=== PATIENT | female | born 1935 | race Caucasian/White ===

== ENCOUNTER → 2018-04-13 10:41 | Outpatient (CLI) | payer MEDICARE, BC, SELFPAY ==
--- NOTE | 2018-04-13 | DI.RAD.S_ITS ---
PROCEDURE: XR LUMBAR SPINE 2-3V INDICATIONS: SPINAL STENOSIS TECHNIQUE: 3 views of the lumbar spine were acquired. COMPARISON: None. FINDINGS: Bones: 5 ocp-uqp-eyhyylu vertebrae are present with vestigial 12th ribs. There is trace L1-L2 and L2-L3 retrolisthesis. There is trace L3-L4 anterolisthesis. Approximately 15? of convex right lumbar spine scoliosis. Severe L3-L4 degenerative changes. Moderate L1-L2, L2-L3 and L4-L5 degenerative changes. Moderate L2-L3, L3-L4 and L4-L5 facet arthropathy. Severe L5-S1 facet arthropathy. No vertebral body compression fractures. No suspicious bony lesions. Soft tissues: Overlying bowel gas pattern is normal. No suspicious soft tissue calcifications. IMPRESSION: 1. Convex left scoliosis. 2. Multilevel degenerative disc disease. 3. Multilevel facet arthropathy. Dictated by: Valeria Bonilla MD, PhD on 04/13/2018 at 11:08 Approved by: Valeria Bonilla MD, PhD on 04/13/2018 at 11:21
== END ==
PROVIDERS: PCP Internal Medicine; Visit Provider Internal Medicine
DX: M51.16 Intervertebral disc disorders with radiculopathy, lumbar region (principal); M41.9 Scoliosis, unspecified; M47.26 Other spondylosis with radiculopathy, lumbar region; M47.27 Other spondylosis with radiculopathy, lumbosacral region
CPT/HCPCS: 72100

== ENCOUNTER → 2018-04-24 10:55 | Outpatient (CLI) | payer MEDICARE, BC, SELFPAY ==
--- NOTE | 2018-04-24 | DI.MRI.S_ITS ---
PROCEDURE: MR LUMBAR SPINE WO/W CON INDICATIONS: LUMBOSACRAL REGION SPINAL STENOSIS TECHNIQUE: Noncontrast sagittal T1 spin echo and T2 fast spin echo, sagittal STIR, axial T1 and T2 fast spin echo through the lumbar spine. In this patient, coronal T2-weighted images were also performed. After the administration of contrast, sagittal and axial T1 spin echo with fat saturation through the lumbar spine. COMPARISON: [facility], CR, XR LUMBAR SPINE 2-3V, 04/13/2018, 10:32. FINDINGS: Image quality: Diagnostic, with note made of motion artifact. Alignment and curvature: Moderate dextroconvex scoliotic curvature is seen. There is moderate lateral translation of L3 on L4. Minimal retrolisthesis is seen at L2-L3. Minimal anterolisthesis is seen L3-L4. There is minimal retrolisthesis at L4-L5. Grade 1 anterolisthesis is seen at L5-S1. No associated pars defects are detected, however. Marrow: Marrow is of normal overall signal. No acute vertebral body compression fractures. No suspicious marrow enhancement. Spinal cord: Conus medullaris terminates at the T12-L1 level. Visualized spinal cord demonstrates normal signal, without suspicious enhancement. Paraspinous soft tissues: There is a rounded lesion seen along the posterior aspect of the right liver, just superior to the right kidney that measures 3.4 x 3 cm in greatest axial dimension. This lesion is hypointense on precontrast T1-weighted imaging, hyperintense on T2-weighted/STIR imaging and demonstrates moderate internal enhancement on postcontrast imaging. T12-L1: Normal appearance. L1-L2: Mild to moderate loss of disc height is seen. Loss of disc signal is seen. Rxsj-rw-clgygwvb disc bulge is seen, which is eccentric to the right side. Kgjb-zj-ccjqntgj bilateral neural foraminal narrowing is seen. Mild central canal narrowing is seen. L2-L3: Mild loss of disc height is seen. Loss of disc signal is seen. Moderate generalized disc bulge is seen. Qmak-kl-tjorzpal facet hypertrophy is seen. Iwic-td-jxlsnmdc bilateral neural foraminal narrowing is seen, left worse than right. Mild central canal narrowing is seen. L3-L4: Moderate loss of disc height is seen. Loss of disc signal is seen. Moderate disc bulge is seen, which is eccentric to the left side. Moderate to severe bilateral neural foraminal narrowing is seen. There is a minimal amount of associated nerve root impingement. No significant central canal narrowing is seen. There has been removal of portions of the posterior elements. L4-L5: Moderate loss of disc height is seen. Loss of disc signal is seen. Moderate disc bulge is seen, which is eccentric to the right side. Moderate to severe bilateral neural foraminal narrowing is seen. There is a degree of impingement seen upon the exiting nerve roots. Moderate central canal narrowing is seen. L5-S1: The disc height is well-preserved. Loss of disc signal is seen at this level. Moderate to prominent facet hypertrophy is seen. Moderate generalized disc bulge is seen. Moderate to severe bilateral neural foraminal narrowing is seen. There is a degree of impingement seen upon the exiting nerve roots. Moderate to severe central canal narrowing is seen. IMPRESSION: Multiple levels of lumbar spine degenerative change are seen, which are most prominent at the L4-L5 and L5-S1 levels. Moderate dextroconvex scoliotic curvature. Along the posterior aspect of the right liver, there is an enhancing mass measures 3.4 cm. This may be related to benign liver lesion, such as a hemangioma. However, differential diagnosis includes a liver neoplasm. Differential diagnosis also enhancing renal mass, yet this is considered to be less likely. A liver mass protocol MRI or CT would be recommended for further evaluation. Note: Findings and recommendations relayed to Dr. Maldonado via medical sociologist.[facility] at [address] [place] [address] on April 24, 2018. Dr. Maldonado will call back if there are any questions. Dictated by: Ernst Olivo M.D. on 04/24/2018 at 12:05 Approved by: Ernst Olivo M.D. on 04/24/2018 at 13:23
== END ==
PROVIDERS: PCP Internal Medicine; Visit Provider Internal Medicine
DX: M48.07 Spinal stenosis, lumbosacral region (principal); M51.36 Other intervertebral disc degeneration, lumbar region; M51.37 Other intervertebral disc degeneration, lumbosacral region; R16.0 Hepatomegaly, not elsewhere classified
CPT/HCPCS: 72158; A9579

== ENCOUNTER → 2018-04-26 09:44 | Outpatient (CLI) | payer MEDICARE, BC, SELFPAY ==
--- NOTE | 2018-04-26 | DI.CT.S_ITS ---
PROCEDURE: CT ABDOMEN WO/W CON INDICATIONS: LIVER LESION SEEN ON MRI TECHNIQUE: 4 phase scanning was performed. Non-contrast 5 mm axial sections acquired from the diaphragm to the iliac crests. Following the administration of intravenous contrast, 5 mm thick arterial-phase, portal venous-phase, and 5-minute delayed phase images were acquired through the liver. 5 mm thick coronal and sagittal reformats were performed. For radiation dose reduction, the following was used: automated exposure control, adjustment of mA and/or kV according to patient size. COMPARISON: [facility], MR, MR LUMBAR SPINE WO/W CON, 04/24/2018, 11:12. FINDINGS: Image quality: Excellent. Lung bases: Lung bases are clear. Heart size is normal. Liver: The liver contains a 3.4-3.5 cm rounded soft tissue abnormality that shows discontinuous peripheral nodular enhancement and centripetal internal contrast enhancement on delayed imaging. No additional similar lesions are seen elsewhere throughout the hepatic parenchyma. Other solid organs: Gallbladder appears normal. Biliary system is non dilated. Pancreas is normal in morphology. Spleen is normal in size and enhancement. No adrenal nodules. Both kidneys demonstrate normal size and enhancement, without hydronephrosis or nephrolithiasis. Nodes and vessels: No retroperitoneal or mesenteric adenopathy by size criteria. Aorta and inferior vena cava are normal in size. Bowel and peritoneum: Unenhanced bowel loops are normal in caliber. No free fluid or air. Bones: No suspicious bony lesions. No vertebral body compression fractures. Miscellaneous: No ventral hernias. IMPRESSION: Benign hemangioma right posterior hepatic segment measuring up to 3.5 cm in maximal dimension and no additional followup is recommended. Dictated by: Edgar Rivera M.D. on 04/26/2018 at 11:37 Approved by: Edgar Rivera M.D. on 04/26/2018 at 11:42
== END ==
PROVIDERS: PCP Internal Medicine; Visit Provider Internal Medicine
DX: D18.09 Hemangioma of other sites (principal); K76.9 Liver disease, unspecified
CPT/HCPCS: 74170; Q9967

== ENCOUNTER → 2018-06-27 09:51 | Outpatient (CLI) | payer MEDICARE, BC, SELFPAY ==
--- NOTE | 2018-06-27 | DI.RAD.S_ITS ---
PROCEDURE: XR HIP W PEL IF DONE BILAT 2V INDICATIONS: HIP PAIN TECHNIQUE: AP pelvis with lateral view(s) of the right and left hip(s). COMPARISON: None. FINDINGS: Bones: No fractures or dislocations. Discogenic changes and lateral curvature seen of the lower lumbar spine. There is severe right hip degeneration with aqcr-eq-hsas appearance. Exccjvwc-io-msqlrk left hip degeneration. There is also degenerative sclerosis and spurring of the pubic symphysis and sacroiliac joints. Pelvic ring appears intact. No suspicious bony lesions. Soft tissues: The visualized bowel gas pattern is normal. No suspicious soft tissue calcifications. IMPRESSION: Severe right hip degeneration. Moderate to severe left hip degeneration. Lower lumbar degenerative disc disease. Dictated by: Peewee Luna M.D. on 06/27/2018 at 12:01 Approved by: Peewee Luna M.D. on 06/27/2018 at 12:05
== END ==
PROVIDERS: PCP Internal Medicine; Visit Provider Internal Medicine
DX: M25.559 Pain in unspecified hip (principal); M16.0 Bilateral primary osteoarthritis of hip; M51.36 Other intervertebral disc degeneration, lumbar region
CPT/HCPCS: 73521

== ENCOUNTER 2018-10-05 06:07 | Inpatient (IN) | payer MEDICARE, BC, SELFPAY ==
[2018-09-20 08:48] VITALS: BMI 20.2
[2018-10-05] VITALS (17 sets, daily range): BP systolic 86–131; BP diastolic 47–69; PULSE 54–64; RESP 8–18; TEMP 36.2–36.7; O2SAT 95–100; BMI 19.3
--- NOTE | 2018-10-05 | DI.RAD.S_ITS ---
PROCEDURE: XR PELVIS 1-2V INDICATIONS: RIGHT TKA TECHNIQUE: Intra-operative view of the pelvis and hip acquired. COMPARISON: None. FINDINGS: Bones: Intraoperative devices prior to placement of arthroplasty prostheses are in expected positions. No fractures or suspicious bony lesions. Soft tissues: Overlying surgical retractors are present, along with other intraoperative changes. IMPRESSION: Expected postsurgical change for intraoperative right hip arthroplasty. Dictated by: Valeria Bonilla MD, PhD on 10/05/2018 at 10:29 Approved by: Valeria Bonilla MD, PhD on 10/05/2018 at 10:29
--- NOTE | 2018-10-05 06:00 | DI.RAD.S_ITS ---
PROCEDURE: XR HIP W PEL IF DONE RT 2V INDICATIONS: prosthesis placement TECHNIQUE: AP pelvis and lateral view of the right hip acquired. COMPARISON: [facility], CR, XR PELVIS 1-2V, 10/05/2018, 9:08. FINDINGS: Bones: Patient is status post right hip arthroplasty, with hardware components in expected positions. The hip joint appears congruent. The visualized bony structures appear intact. Prominent degenerative changes of the lower lumbar spine, right sacroiliac joint, and pubis symphysis are present. There is moderate degenerative changes of the left hip. Soft tissues: Overlying postoperative changes are noted. No suspicious soft tissue densities. No unexpected radiopaque foreign bodies are identified. Areas of soft tissue air and edema are present. IMPRESSION: Expected postoperative changes related to a right hip arthroplasty. Dictated by: Fco Powell M.D. on 10/05/2018 at 10:21 Approved by: Fco Powell M.D. on 10/05/2018 at 10:22
[2018-10-05] MEDS: LACTATED RINGERS 1,000 ML 42 ML IV ×2 (07:00→10:17)
[2018-10-05] MEDS: VANCOMYCIN 1,000 MG/200 ML FROZ.PIGGY 200 MG IV (07:01)
[2018-10-05] MEDS: ACETAMINOPHEN 325 MG TABLET 975 MG PO ×3 (07:14→20:41)
[2018-10-05] MEDS: CELECOXIB 200 MG CAPSULE PO (07:14)
[2018-10-05] MEDS: PREGABALIN 75 MG CAPSULE PO (07:14)
--- NOTE | 2018-10-05 07:24 | PC.NURSE ---
Day shift: Pt not on this AC unit at this time.
--- NOTE | 2018-10-05 07:47 | PM.PREOP ---
Pre-operative Note Interval Note History & Physical reviewed/Exam performed by Physician: Yes Changes to H&P: Yes
--- NOTE | 2018-10-05 07:49 | P.OP_ITS ---
Operative Date/Time/Diagnoses Date of procedure: 10/05/18 Time of procedure: 07:47 Pre-op diagnosis: right hip OA Post-op diagnosis: same Procedure & Clinicians Procedure: right total hip anterior Same procedure as scheduled: Yes Indications: The patient has had progressively worsening right hip pain with radiographic changes consistent with arthritis. Non-operative management has failed and the patient has requested total hip replacement. The risks, benefits and alternatives to surgery were discussed with the patient prior to proceeding. Risks discussed included, but were not limited to, failure to relieve pain, leg length discrepancy, dislocation, stiffness, infection, nerve damage, deep venous thrombosis, pulmonary embolism, stroke, coma, heart attack, permanent paralysis and , as well as the potential need for eventual revision of the prosthetic. Surgeon: Rekha Berg [employer] Helper: Mian Wei Anesthesia Type: General and Spinal Operative Notes Findings: Severe right hip osteoarthritis, good stability Closure Type: primary Specimen(s): none sent Implants & Drains: [employer] anthology standard offset 7, 48 R3 cup, -3 x 32 Estimated Blood Loss (mL): 250 Blood products transfused: none Procedure in detail: The patient was brought to the operating room. Patient was carefully positioned in the supine position. Time-out was performed and antibiotics were given. Anesthesia was induced. She was positioned in the on the table in order to allow hyperextension of the hip. Bilateral lower extremities were prepped and draped in a standard sterile fashion. An anterior right hip incision was made 1 fingerbreadth lateral to the anterior superior iliac spine and extended distally towards the greater trochanter. Dissection was carried out through skin and subcutaneous tissues. The skin and subcutaneous tissues were carefully injected with Lidocaine with epi. Superficial hemostasis was achieved. The fascia over the tensor fascia mathieu was defined and incised with a knife. Two Allis clamps were used to grasp the fascia. Tensor fascia mathieu was retracted laterally. A gelpi retractor was placed. Dissection was carried out down along the neck. The circumflex vessels were carefully identified and cauterized with the Aqua Mantis. There was good visualization of the femoral neck. A Cobra was placed superior to the neck and the gluteus fibers were carefully stripped from that superior aspect of the capsule. A 2nd retractor was placed along the inferior aspect of the neck. The rectus insertion along the capsule was partially released. A 3rd retractor that was then gently placed over the rim of the acetabulum under the rectus. Capsule was carefully incised and released from the intertrochanteric line circumferentially superior to the mid sagittal line and inferiorly to the mid sagittal line until the lesser trochanter was palpable. A tag stitch was placed both in the superior and inferior limb of the capsular insertion. Along the acetabulum capsule was also released up to the mid sagittal 12:00 position. A portion of the labrum was resected. A saw was used to perform an osteotomy at the level of the intertrochanteric line and the junction of the superior femoral neck leaving approximately 1 finger breath of residual inferior neck above the lesser trochanter. A 2nd cut was made along the femoral neck at the base of the head and a napkin ring of neck was removed. Corkscrew was placed in the femoral head and the head was removed without difficulty. Retractors were then repositioned around the acetabulum. Residual labrum was resected and additional osteophytes were removed. A reamer that was 4 mm below the templated size was placed by hand in the acetabulum and it was reamed to centralize the acetabulum. It was then reamed up to 2 under the templated size and fluoroscopy was brought in to confirm the position of the reaming and depth of reaming. I reamed 1 under the anticipated size. A trial cup was placed and noted that it was appropriately sized and fluoroscopy confirmed position and depth. The component was open and inserted without difficulty fluoroscopic imaging was used to confirm that the cup had been adequately seated and was well positioned. Neutral poly trial liner was placed. The cup was tested and noted to be stable. Attention was then directed to the femur. The femur was gently hyperextended additional capsular release was performed as needed in order to allow adequate visualization of the proximal femur with elevation of the femur. Patient was placed in a hyperextended slightly abducted position with maximum external rotation. Box osteotome was used to check for any residual neck as well as sclerotic bone along the trochanter. [place] pepper was placed in the femur. Additional broaching was performed. Canal finder was used to determine the alignment of the canal and position. Size 1 broach was placed. The canal was then appropriately broached up to the templated size as long as there was adequate stability of the broach and serial advancement of the broach without excessive impingement. Specific attention was directed at avoiding varus attempting to direct the distal aspect of the broach more anteriorly and avoiding excessive anteversion. Trial reduction showed acceptable range of motion, good stability, no posterior impingement, nondenominational of leg length and appropriate lateral shuck. I also hyperflexed the hip and checked that there was no impingement anteriorly and there was good stability with flexion, abduction and internal rotation. Final neutral poly was placed without difficulty. Marcaine and Exparel were injected.. The stem was placed without difficulty. Repeat trial reduction and x-ray showed acceptable overall position, length, and no evidence of the femoral fracture. Final head was placed. Wound was meticulously irrigated with normal saline. The hip was reduced and additional Exparel and Marcaine were injected. The capsule was closed with interrupted nonabsorbable sutures. The fascia of the tensor was closed with interrupted and running Vicryl. No drain was placed. Any tensor fascia mathieu muscle that appeared to be contused or injured which was a minimal amount was carefully resected. Capsule around the tensor was injected with Exparel and Marcaine. The skin was closed with barbed stitches for the subcutaneous tissue and skin. We also used surgical glue. The wound was dressed sterilely. Brief Betadine soak was also used and was meticulously irrigated with normal saline. Patient was transferred to recovery room in satisfactory condition. Complications: none Condition: stable Disposition: Acute Care Plan for aftercare: The patient will be maintained on a standard total hip replacement protocol with weight bearing as tolerated and anterior hip precautions. The patient will receive Aspirin and sequential compression devices for DVT prophylaxis. The patient will be discharged home when safe for the home environment.
[2018-10-05] MEDS: TRANEXAMIC ACID 1,000 MG VIAL 1000 MG INJ ×2 (08:00→09:45)
[2018-10-05] MEDS: CEFAZOLIN 2 GM/100 ML FROZ.PIGGY IV ×3 (08:04→23:51)
[2018-10-05] MEDS: LIDOCAINE 1% W/EPI INJ 20 ML INJ (08:26)
--- NOTE | 2018-10-05 08:50 | SUR.OPER ---
Supine, head on pillow, torso on pink pad positioner. Iliac crest at flex of foot end of table. Gel roll under operative hip. Both arms secured on arm boards <90 degrees abduction.
[2018-10-05] MEDS: BUPIVACAINE LIPOSOME 266 MG/20 ML VIAL INJ (09:16)
[2018-10-05] MEDS: BUPIVACAINE 0.25% W/ EPI VIAL 50 ML INJ (09:25)
[2018-10-05] MEDS: POVIDONE-IODINE 15 ML, SODIUM CHLORIDE 0.9% 250 ML TOP (09:26)
--- NOTE | 2018-10-05 11:40 | PC.NURSE ---
Day shift: Arrived on unit from PACU at approx 1130. Oriented to room and call light. RA 99%. Denies any pain. CMS ok. PPP. Denies nausea. Call light in reach. Aquacel dressing is CDI. Call light in reach. Bed alrm is on. HFR for now.
[2018-10-05] MEDS: LACTATED RINGERS 1,000 ML 125 ML IV ×2 (11:48→20:49)
--- NOTE | 2018-10-05 14:47 | CM.IDA ---
Discharge Planning/Care Management CM Discharge Assessment Start: 10/05/18 14:37 Freq: Status: Active Protocol: Document 10/05/18 14:37 ANNEMARIE (Rec: 10/05/18 14:47 ANNEMARIE [id number]) Discharge Planning Assessment Assigned [facility] MINDI Alarcon DPOA/Assigned Designee Name Eugene Cummings, son and DPOA Contact Information [phone] Advance Directives? Yes Advance Directives on File Yes History Provided By Patient Family Member Prior Living Arrangements House Household Members none Type of transporation used prior to Drives own vehicle admit Independent with ADL's Yes Is patient alert and oriented? Yes Barriers to Discharge No Comment Met w/pt and family: son and DIL, friend and sister at bedside. Pt has just reached the floor from OR the after hip surgery and states I'm still numb. Pt is active and indp. at baseline and is confident about her return home when medically stable. She says she has gone through the mary path and feels prepared to return home. Family agrees and states pt is healthy, active and they collectively will be w/pt 11/04 for at least a week. Outpt PT is expected. Pt just got to the floor from surgery. will follow closely, PT pending. Discharge Plan Home Transportation Arrangement Family Additional Comment DC likely home, [employer] team following closely. Whiteboard Updated in Patient Room with Yes name and ext. # of [facility] Review Status In Process
--- NOTE | 2018-10-05 14:56 | PT.IIE ---
Current Diagnoses Unilateral primary osteoarthritis, right hip (10/05/18) Surgery Performed Operation Date: 10/05/18 07:45 Actual Procedures p Total Hip Arthroplasty/Anterior Approach(Right) - Rekha Berg MD Surgical History (Last Updated 09/20/18 @ 09:18 by Iris Waggoner RN) History of bunionectomy of left great toe (Acute) History of root canal procedure (Acute ~06/2018) History of total hysterectomy with bilateral salpingo-oophorectomy (BSO) (Acute) Hx of foot surgery (Acute) Hx of laminectomy (Acute ~2012) Hx of repair of right rotator cuff (Acute) Hx of tonsillectomy (Acute) Status post cataract extraction of both eyes with insertion of intraocular lens (Acute) Status post glaucoma surgery (Acute) Medical History (Last Updated 09/20/18 @ 09:43 by Iris Waggoner RN) Arthritis (Acute) Easy bruisability (Acute) Fragile skin (Acute) Glaucoma (Acute) Herpes labialis (Acute) Hyperlipidemia (Acute) Normal colonoscopy (Acute ~2011) Numbness and tingling (Acute) Osteoarthritis (Acute) Physical Therapy Inpatient Evaluation/Re-Eval M1 PT/OT-IP Prior Functional Status Start: 10/05/18 16:33 Freq: NEEDED Status: Active Protocol: Document 10/05/18 14:56 AB (Rec: 10/05/18 16:47 AB [email or web address]) Medical Review Prior Functional Status Medical History Reviewed Yes Communication able to make needs known Mobility and Gait staed that she is modified independent with all mobilities and ambulation without AD Activities of Daily Living and IADL's able to do all ADLs independently Social History Household Members none Living Arrangements House Number of Floors (Floors) One Floor Number of Stairs To Enter/Railing? 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 stated that she has a PT friend that will check on her as well pt has a high bed and stated that her PT friend will bring a step stool for her to use. has tub next to the toilet that she uses to get up . M2 PT-IP Current Condition Start: 10/05/18 16:33 Freq: NEEDED Status: Active Protocol: Document 10/05/18 14:56 AB (Rec: 10/05/18 16:47 AB [email or web address]) Physical Therapy Current Condition Current Condition Evaluation Date 10/05/18 Treatment Diagnosis s/p R MEGAN anterior approach; difficulties in walking Onset Date 10/05/18 Precautions Anterior Hip Precautions No Hip Extension No Hip External Rotation Weight Bearing Status Weight Bearing Status Weight Bear as Tolerated M3 PT-IP Subjective Start: 10/05/18 16:33 Freq: NEEDED Status: Active Protocol: Document 10/05/18 14:56 AB (Rec: 10/05/18 16:47 AB [email or web address]) Subjective Physical Therapy Visit Type Type Initial Evaluation Visit Start Time 14:56 Visit Stop Time 15:48 Total Visit Minutes 54 Number of CATCH BASIN CLEANER Visits 0 Physical Therapy Visit Comments Patient Comments pt agreeable to do PT Therapy Pain Assessment Pain When Pain Assessed At Rest Pain Present Pain Present Pain Reported Location Right Hip Intensity 2 Scale Used Numeric (1 - 10) Pain Management Techniques Apply Cold Timing of Activity with Medications M4 PT-IP Mobility and Gait Start: 10/05/18 16:33 Freq: NEEDED Status: Active Protocol: Document 10/05/18 14:56 AB (Rec: 10/05/18 16:47 AB [email or web address]) PT-Bed Mobility Assessment Supine to Sit Supine to Sit Minimal Assistance Sit to Supine Sit to Supine Minimal Assistance Scooting Scooting to Edge of Bed Minimal Assistance PT-Transfer Assessment Sit to and From Stand Sit to and from Stand Moderate Assistance 1 Person Assistance Equipment Transfer Assistive Device Gait Belt Front Wheeled Walker Orthotic/Prosthetic Devices or Brace: No Transfers Transfer Destination Toilet Transfer Technique pt ambulated to the toilet using FWW Transfer Ability Level of Assist Moderate Assistance 1 Person Assistance Use of Upper Extremities Comments Mobility Comments pt ambulated to the toilet using FWW mod A and cues. was able to maintain standing min A while assisted with managing her gown. pt required min A for controlled descent to the toilet. pt requested to go back to bed after using the toilet. Gait Assessment Gait Gait Assistance Required: Moderate Assistance 1 Person Assist Distance (Feet) 12 Able to Maintain Weight Bearing Status Yes During Gait Assistive Devices Assistive Device Gait Belt Front Wheeled Walker Orthotic/Prosthetic Devices or Brace: No Gait Deviations General Gait Pattern Antalgic Decreased Stride Length Decreased Feet Clearance Factors Limiting Gait Function Factors Limiting Gait Function Decreased Activity Tolerance Decreased Strength Difficulty Following Directions Limited Range of Motion Pain Poor Balance Poor Safety Awareness Comments Gait Comments pt requires cues to maintain hip precautions. PT-Balance Assessment Sitting Balance and Reactions Static Sitting Balance Ability Good Dynamic Sitting Balance Ability Fair Standing Balance and Reactions Static Standing Balance Ability Fair Dynamic Standing Balance Ability Poor Device Used FWW M5 PT-IP Objective Assessments Start: 10/05/18 16:33 Freq: NEEDED Status: Active Protocol: Document 10/05/18 14:56 AB (Rec: 10/05/18 16:47 AB [email or web address]) Orientation Orientation/Cognition Level of Alertness Alert Orientation Name Place Situation Safety Awareness Decreased Safety Awareness Memory Description Short Term Impaired Form Designer Impaired Comments pt seems sleepy Gross Range of Motion Lower Extremity ROM Assessment Within Functional Limits Strength Lower Extremity Strength Assessment Right Impaired Hip 3-/5 Knee 3+/5 Sensation Assessment Sensation Gross Sensation WNL Muscle Tone Muscle Tone WNL Yes M6 PT-IP Treatment Start: 10/05/18 16:33 Freq: NEEDED Status: Active Protocol: Document 10/05/18 14:56 AB (Rec: 10/05/18 16:47 AB [email or web address]) Physical Therapy Treatment Exercises Exercises Heel Slides Education Education Provided Precautions Weight Bearing Status Post-Op Packet Safety Other Treatments Other Treatment Performed pt required repeated cues and education regarding R hip anterior precautions M7 PT-IP Assessment and Plan Start: 10/05/18 16:33 Freq: NEEDED Status: Active Protocol: Document 10/05/18 14:56 AB (Rec: 10/05/18 16:47 AB [email or web address]) PT Summary Assessment and Plan Potential Rehabilitation Potential Good Status of Condition at Evaluation Stable Summary Impairments Pain ROM Strength Balance Coordination Sensation Tone Cognition Bed Mobility Transfers Gait Activity Tolerance Assessment Summary pt requiring one person assist with mobility and will likely improve with function during hospital stay. pt plans to go home with family to assist her. caregiver training will be conducted when appropriate as well as stair climbing training and if able to safely perform, will be able to go home when medically stable. pt stated that she is already set up at [facility] for her outpt PT. Goals Bed Mobility Goal Standby Assistance Transfer Goal Standby Assistance Front Wheeled Walker Gait Goal Standby Assistance Front Wheel Walker Gait Distance 150 Days to Meet Goals 3 Frequency of Treatment Frequency Of Treatment Twice a Day Treatment Plan Physical Therapy Treatment Plan Bed Mobility Training Transfer Training Gait Training Therapeutic Exercise Balance Retraining Post Op Education Discharge Planning Hot or Cold Pack Neuromuscular Re-ed Coordination Retraining Manual Therapy Recommendations To Nursing Amount of Assist Needed 1 Person Assist Discharge Recommendations PT Discharge Recommendations Home with 11/04 Assist Outpatient PT
[2018-10-05] MEDS: ASPIRIN EC 81 MG TABLET PO (20:41)
[2018-10-06] VITALS: BP 109/59; PULSE 59; RESP 18; TEMP 36.6; O2SAT 97
[2018-10-06 03:50] VITALS: BP 127/60; PULSE 58; RESP 17; TEMP 36.2; O2SAT 99
[2018-10-06 06:22] LABS: Hematocrit 34.4 % (36-46); Hemoglobin 11.4 g/dL (12.0-16.0)
--- NOTE | 2018-10-06 06:39 | PC.NURSE ---
Pt. declined Ibuprofen this morning. States I'll wait until my Tylenol is due, I'm okay right now. Requested & provided decaf coffee & glenn crackers. Denies nausea, drinking fluids. IVF DC'd & saline locked. Will cont. POC & monitor.
--- NOTE | 2018-10-06 07:57 | PM.DS.1 ---
History of Present Illness Date Patient Seen: 10/06/18 Time Patient Seen: 07:58 Chief complaint: right hip [id number] Narrative: The patient has had progressively worsening right hip pain with radiographic changes consistent with arthritis. Non-operative management has failed and the patient has requested total hip replacement. The risks, benefits and alternatives to surgery were discussed with the patient prior to proceeding. Risks discussed included, but were not limited to, failure to relieve pain, leg length discrepancy, dislocation, stiffness, infection, nerve damage, deep venous thrombosis, pulmonary embolism, stroke, coma, heart attack, permanent paralysis and , as well as the potential need for eventual revision of the prosthetic. Discharge Providers Date of admission: 10/05/18 06:07 Primary care physician: Elias Maldonado MD Consults: 10/05/18 06:00 Consult to Anesthesiology Routine Comment: Consulting Provider: Anesthesiologist Reason for consultation: Regional block for post operative pain control Has provider been notified: Yes 10/05/18 11:40 Consult to Discharge Planning Routine Comment: Consult to Physical Therapy Evaluate & Treat Comment: marilyn simeon Physician Instructions: post op MEGAN protocol Consult to Respiratory Therapy Evaluate & Treat Comment: Physician Instructions: Evaluate and treat Discharge provider: Nicol Bertrand PA-C Discharge Date: 10/06/18 Summary Discharge Diagnosis: s/p total hip arthroplasty Hospital Course: Whit was admitted for a right total hip arthroplasty with Dr. Berg, and she consented to procedure. Hospital course was unremarkable. On postop day 1. Patient was ready to discharge home. She is eating and voiding without difficulty or assistance. She mobilized with physical therapy throughout her stay. She has medications at home. She has outpatient physical therapy set up. She has ASA for DVT prophylaxis. Status at Discharge Functional status at discharge: uses cane/walker Exam Vital Signs (past 8 hours): - 10/06/18 00:00 10/06/18 03:50 Temperature 97.9 F 97.2 F L Pulse Rate 59 L 58 L Respiratory Rate 18 17 Blood Pressure 109/59 L 127/60 Pulse Oximetry 97 99 Oxygen Delivery Method Room Air Oxygen Flow Rate 0 Narrative Exam Narrative: Patient is sitting at bedside chair no acute distress. She is alert and oriented x3. Dressing on right hip is CDI. Calves are soft, compressible, nontender bilaterally. She is able to actively dorsiflex and plantar flex. Sensation intact light touch throughout bilateral lower extremities. Pulses are symmetrical. Her pain was well-controlled last night with Tylenol. Denies chest pain or shortness of breath. Objective Labs Result Diagrams: 10/06/18 05:40 Labs: Laboratory Results - last 24 hr 10/06/18 05:40 Hgb 11.4 L Hct 34.4 L Discharge Plan Discharge Plan Patient Disposition: Home Discharge comment: DC home this afternoon Discharge Med Rec/Prescriptions Prescriptions: New acetaminophen 325 mg Tablet 975 mg PO TID Qty: 60 RF: 0 aspirin 81 mg Tablet,Delayed Release (Dr/Ec) 81 mg PO BID Qty: 60 RF: 0 No Action No Known Home Medications RF: 0 Follow up/Referrals: Rekha Berg MD [Physician] - Provider Discharge Instructions Diet: Diet as Tolerated Cold/Heat Therapy: as needed Skin/Wound/Dressing Care Report to your healthcare provider any signs of infection, such as:: chills, fever and increased pain Visit Report/Discharge Packet Instructions: DI for Hip Replacement Discharge Data Primary Care Provider: Elias Maldonado V Attending Provider: Rekha Berg Admit Date/Time: 10/05/18 06:07
[2018-10-06 08:00] VITALS: BP 102/56; PULSE 63; RESP 16; TEMP 36.3; O2SAT 95
[2018-10-06] MEDS: ACETAMINOPHEN 325 MG TABLET 975 MG PO (08:41)
[2018-10-06] MEDS: ASPIRIN EC 81 MG TABLET PO (08:41)
--- NOTE | 2018-10-06 09:47 | PT.IPTN ---
Current Diagnoses Unilateral primary osteoarthritis, right hip (10/05/18) Surgery Performed Operation Date: 10/05/18 07:45 Actual Procedures p Total Hip Arthroplasty/Anterior Approach(Right) - Rekha Berg MD Physical Therapy Treatment Note M2 PT-IP Current Condition Start: 10/05/18 16:33 Freq: NEEDED Status: Active Protocol: Document 10/05/18 14:56 AB (Rec: 10/05/18 16:47 AB [email or web address]) Physical Therapy Current Condition Current Condition Evaluation Date 10/05/18 Treatment Diagnosis s/p R MEGAN anterior approach; difficulties in walking Onset Date 10/05/18 Precautions Anterior Hip Precautions No Hip Extension No Hip External Rotation Weight Bearing Status Weight Bearing Status Weight Bear as Tolerated M3 PT-IP Subjective Start: 10/05/18 16:33 Freq: NEEDED Status: Active Protocol: Document 10/06/18 09:05 [email or web address] (Rec: 10/06/18 09:47 LJ [email or web address]) Subjective Physical Therapy Visit Type Type Treatment Note Visit Start Time 09:05 Visit Stop Time 09:37 Total Visit Minutes 32 Notes Pt has been up x 2 his am w/ nursing. Willing to ambulate and practice stairs for d/c today M4 PT-IP Mobility and Gait Start: 10/05/18 16:33 Freq: NEEDED Status: Active Protocol: Document 10/06/18 09:05 [email or web address] (Rec: 10/06/18 09:47 LJ [email or web address]) PT-Bed Mobility Assessment Supine to Sit Supine to Sit Standby Assistance Sit to Supine Sit to Supine Standby Assistance Scooting Scooting to Edge of Bed Standby Assistance PT-Transfer Assessment Sit to and From Stand Sit to and from Stand Contact Guard Assistance Use of Upper Extremities Equipment Transfer Assistive Device Gait Belt Front Wheeled Walker Orthotic/Prosthetic Devices or Brace: No Transfers Transfer Destination Bed Transfer Ability Level of Assist Contact Guard Assistance Use of Upper Extremities Comments Mobility Comments Pt SBA for all bed mobility. Used uninvolved leg to assist involved leg with bed mobility . Able to follow prrecautions with mobility and gait. Gait Assessment Gait Gait Assistance Required: Contact Guard Assist Distance (Feet) 150 Able to Maintain Weight Bearing Status Yes During Gait Assistive Devices Assistive Device Gait Belt Front Wheeled Walker Orthotic/Prosthetic Devices or Brace: No Gait Deviations General Gait Pattern Antalgic Decreased Stride Length Decreased Feet Clearance Factors Limiting Gait Function Factors Limiting Gait Function Decreased Activity Tolerance Decreased Strength Difficulty Following Directions Limited Range of Motion Pain Poor Balance Poor Safety Awareness Comments Gait Comments Pt ambulates from room to wc 150'. WC to stairs then stairs x2 with pt following precautions. WC back to room then SBA for transfer to bed and bed mobility. M5 PT-IP Objective Assessments Start: 10/05/18 16:33 Freq: NEEDED Status: Active Protocol: Document 10/05/18 14:56 AB (Rec: 10/05/18 16:47 AB [email or web address]) Orientation Orientation/Cognition Level of Alertness Alert Orientation Name Place Situation Safety Awareness Decreased Safety Awareness Memory Description Short Term Impaired Pattern Checker Impaired Comments pt seems sleepy Gross Range of Motion Lower Extremity ROM Assessment Within Functional Limits Strength Lower Extremity Strength Assessment Right Impaired Hip 3-/5 Knee 3+/5 Sensation Assessment Sensation Gross Sensation WNL Muscle Tone Muscle Tone WNL Yes M6 PT-IP Treatment Start: 10/05/18 16:33 Freq: NEEDED Status: Active Protocol: Document 10/06/18 09:05 [email or web address] (Rec: 10/06/18 09:47 LAKSHMI [email or web address]) Physical Therapy Treatment Exercises Exercises Ankle Pumps Gluteal Sets Education Education Provided Precautions Weight Bearing Status Post-Op Packet Safety M7 PT-IP Assessment and Plan Start: 10/05/18 16:33 Freq: NEEDED Status: Active Protocol: Document 10/06/18 09:05 [email or web address] (Rec: 10/06/18 09:47 LAKSHMI [email or web address]) PT Summary Assessment and Plan Potential Rehabilitation Potential Good Status of Condition at Evaluation Stable Summary Impairments Pain ROM Strength Balance Coordination Sensation Tone Cognition Bed Mobility Transfers Gait Activity Tolerance Assessment Summary Stair climbing went well. Pt able to follow precautions and safely perform stairs x2. Pt ambulates in hallway with good posture. Cues for activating core and glutes for stability. Has met goals for ambulation, stairs, and bed mobility. Goals Bed Mobility Goal Standby Assistance Transfer Goal Standby Assistance Front Wheeled Walker Gait Goal Standby Assistance Front Wheel Walker Gait Distance 150
--- NOTE | 2018-10-06 11:37 | PC.NURSE ---
Day shift: Pt to d/c today. BP has been on the low site. Called and talked to Citlaly CHRIS about the BP. OK with Pt still going home today. Will encourage Pt to increase PO fluid intake her and when she gets home. Also to allow time between body position changes for BP to adjust. Plan is to d/c at approx 1300 today.
[2018-10-06 12:28] VITALS: BP 86/45; PULSE 59; RESP 16; TEMP 36.5; O2SAT 96
--- NOTE | 2018-10-06 13:11 | PC.NURSE ---
Day shift: Pt left unit at approx 1315 with family members to private car in WC with TARAN Gusman. Paperwork signed and Pt has all personal belongings. All questions answered.
== END 2018-10-06 13:12 | disposition home or self-care (01) | DRG 470 ==
PROVIDERS: Admitting Provider Orthopaedic Surgery; PCP Internal Medicine; Visit Provider Orthopaedic Surgery
PROC: 0SR902Z Replacement of Right Hip Joint with Metal on Polyethylene Synthetic Substitute, Open Approach (ICD-10-PCS; CPT 27130; principal; 2018-10-05 07:45)
DX: M16.11 Unilateral primary osteoarthritis, right hip (principal)
CPT/HCPCS: 36415; 72170; 73502; 76000; 85014; 85018; 97116; 97161; 97530; C1776; C9290; J0690; J1100; J2250; J2274; J2405; J2704; J3010; J3370

== ENCOUNTER → 2018-12-18 13:17 | Outpatient (CLI) | payer MEDICARE, BC, SELFPAY ==
[2018-10-05 12:13] VITALS: BMI 19.3
--- NOTE | 2018-12-18 | DI.RAD.S_ITS ---
PROCEDURE: XR SHOULDER LT MIN 2V INDICATIONS: LEFT SHOULDER PAIN TECHNIQUE: 3 views of the shoulder were acquired. COMPARISON: [facility], , SHOULDER MINIMUM 2 VIEW LEFT, 03/07/2008, 12:03. FINDINGS: Bones: No fractures or dislocations. No suspicious bony lesions. Visualized ribs appear intact. Severe acromioclavicular degeneration. There is also glenohumeral degenerative joint disease. There is high riding appearance of the humeral head suggestive of chronic rotator cuff pathology. Soft tissues: No suspicious soft tissue calcifications. IMPRESSION: Left shoulder joint degeneration. This appears progressed since 03/07/08 High riding appearance of the left humeral head suggestive of long-standing rotator cuff pathology which could be further assessed with dedicated noncontrast shoulder MRI as clinically warranted Dictated by: Peewee Luna M.D. on 12/18/2018 at 14:15 Approved by: Peewee Luna M.D. on 12/18/2018 at 14:16
== END ==
PROVIDERS: PCP Internal Medicine; Visit Provider Internal Medicine
DX: M25.511 Pain in right shoulder (principal); M19.012 Primary osteoarthritis, left shoulder
CPT/HCPCS: 73030

== ENCOUNTER → 2019-01-31 09:34 | Outpatient (CLI) | payer MEDICARE, BC, SELFPAY ==
[2018-10-05 12:13] VITALS: BMI 19.3
--- NOTE | 2019-01-31 | DI.MRI.S_ITS ---
PROCEDURE: MR SHOULDER LT WO CON INDICATIONS: LT SHOULDER PAIN TECHNIQUE: Noncontrast oblique coronal T2 fast spin echo with fat saturation, oblique sagittal T1 spin echo and T2 fast spin echo with fat saturation, axial T1 spin echo and T2 fast spin echo with fat saturation through the shoulder. COMPARISON: None. FINDINGS: Image quality: Motion degraded exam Rotator cuff: Massive full-thickness tear involving the supraspinatus and infraspinatus tendons, approximately 3.8 cm in the AP dimension on sagittal image 11 series 10. Teres minor tendinopathy and thickening noted. There is also thickening and internal signal changes involving the subscapularis tendon in keeping with tendinopathy and superimposed partial thickness articular sided tear. Atrophy of the supraspinatus and infraspinatus muscles is present. There is also partially visualized atrophy of the subscapularis muscle. Bones and bursae: No bone marrow contusions or fractures. Moderate hypertrophic acromioclavicular joint degeneration. The acromion demonstrates conventional anatomy, without an os acromiale. Large joint effusion. Capsule and soft tissues: Suboptimal evaluation given severe motion artifact although frayed appearance of the superior labrum. The remaining labrum appears grossly intact. The long head of the biceps tendon is not well-visualized, potentially ruptured although evaluation is suboptimal due to severe motion artifact. Please correlate with clinical exam findings. Obliteration of the subcoracoid fat. The coracohumeral ligament appears intact although not well visualized. IMPRESSION: Massive full-thickness tear involving the supraspinatus and infraspinatus tendons. Additional partial-thickness articular sided tear and tendinopathy of the subscapularis tendon. Severe atrophy of the supraspinatus, infraspinatus and subscapularis muscles. Chronic degeneration/fraying of the superior labrum. This is not well seen due to severe motion artifact. Long head biceps tendon also not well-visualized raising the possibility of rupture or medial subluxation however limited evaluation given severe motion artifact. Large joint effusion Dictated by: Peewee Luna M.D. on 01/31/2019 at 12:27 Approved by: Peewee Luna M.D. on 01/31/2019 at 12:33
== END ==
PROVIDERS: PCP Internal Medicine; Visit Provider Internal Medicine
DX: M25.512 Pain in left shoulder (principal); M75.122 Complete rotator cuff tear or rupture of left shoulder, not specified as traumatic; M62.512 Muscle wasting and atrophy, not elsewhere classified, left shoulder; M25.412 Effusion, left shoulder
CPT/HCPCS: 73221

== ENCOUNTER → 2019-03-12 09:58 | Outpatient (CLI) | payer MEDICARE, BC, SELFPAY ==
[2018-10-05 12:13] VITALS: BMI 19.3
== END ==
PROVIDERS: PCP Internal Medicine; Visit Provider Internal Medicine
DX: M81.0 Age-related osteoporosis without current pathological fracture (principal); Z78.0 Asymptomatic menopausal state; Z90.722 Acquired absence of ovaries, bilateral; Z87.891 Personal history of nicotine dependence
CPT/HCPCS: 77080; 77081

== ENCOUNTER → 2019-04-05 10:50 | Oncology outpatient (ONC) | payer MEDICARE, BC, SELFPAY ==
[2018-10-05 12:13] VITALS: BMI 19.3
[2019-04-05] MEDS: ZOLEDRONIC ACID 5 MG in SODIUM CHLORIDE 0.9% 100 ML 318.75 ML IV (11:26)
== END ==
PROVIDERS: PCP Internal Medicine; Visit Provider Internal Medicine
DX: M81.0 Age-related osteoporosis without current pathological fracture (principal)
CPT/HCPCS: 96365; J3489

== ENCOUNTER → 2020-07-11 22:00 | Outpatient (ROUT) | payer MEDICARE, BC, SELFPAY ==
[2018-10-05 12:13] VITALS: BMI 19.3
[2020-07-11 22:36] LABS: BUN Creatinine Ratio 24.6 (6-22); Blood Urea Nitrogen 15 mg/dL (7-17); Calcium 9.2 mg/dL (8.4-10.2); Carbon Dioxide 30 mmol/L (22-32); Chloride 102 mmol/L (98-107); Cholesterol 261 mg/dL (140-199); Estimated Glomerular Filt Rate > 60.0 mL/min (>60); Glucose 84 mg/dL (80-110); HDL Cholesterol 101 mg/dL (40-60); HEMOLYSIS < 15 (0-50); LDL Cholesterol Calculated 148 mg/dL (<100); Potassium 4.4 mmol/L (3.4-5.1); Sodium 136 mmol/L (137-145); Triglycerides 58 mg/dL (35-150)
== END ==
PROVIDERS: PCP Internal Medicine; Visit Provider Internal Medicine
DX: M81.0 Age-related osteoporosis without current pathological fracture (principal)
CPT/HCPCS: 80048; 80061

== ENCOUNTER 2022-01-13 13:46 | Emergency (ER) | payer MEDICARE, BC, SELFPAY ==
[2018-10-05 12:13] VITALS: BMI 19.3
[2022-01-13 13:54] VITALS: BP 183/86; PULSE 61; RESP 20; TEMP 36.6; O2SAT 98
--- NOTE | 2022-01-13 14:00 | DI.CT.S_ITS ---
PROCEDURE: CT CERVICAL SPINE WO CON INDICATIONS: trauma TECHNIQUE: Noncontrast 3 mm thick sections acquired from the skull base to the T4 level. Sagittal and coronal reformats were then constructed. For radiation dose reduction, the following was used: automated exposure control, adjustment of mA and/or kV according to patient size. COMPARISON: None. FINDINGS: Image quality: Excellent. Bones: No fractures or dislocations. Moderate to severe degenerative change in the cervical spine most pronounced at C5-C6 and C6-C7. Visualized superior ribs are intact. Soft tissues: Moderate calcification at the carotid bulbs. Prevertebral soft tissues are normal in thickness. No paravertebral hematomas. No apical pneumothoraces. IMPRESSION: No acute osseous abnormality. Dictated by: Gil Neal M.D. on 01/13/2022 at 14:36 Approved by: Gil Neal M.D. on 01/13/2022 at 14:39
--- NOTE | 2022-01-13 14:00 | DI.CT.S_ITS ---
PROCEDURE: CT HEAD/BRAIN WO CON INDICATIONS: trauma TECHNIQUE: Noncontrast 4.5 mm thick angled axial sections acquired from the foramen magnum to the vertex, with coronal and sagittal reformats. For radiation dose reduction, the following was used: automated exposure control, adjustment of mA and/or kV according to patient size. COMPARISON: None. FINDINGS: Image quality: Excellent. CSF spaces: Basal cisterns are patent. No extra-axial fluid collections. Ventricles are normal in size and shape. Brain: No midline shift. No intracranial masses or hemorrhage. No area of hypodensity in a large vascular distribution to suggest acute infarction. Periventricular hypodensity consistent with chronic microvascular ischemic change. Age-related parenchymal loss. Skull and face: Small hematoma at the left forehead. Calvarium and visualized facial bones are intact, without suspicious lesions. Sinuses: Visualized sinuses and mastoids are clear. IMPRESSION: No acute intracranial abnormality. Small left forehead hematoma. Dictated by: Gil Neal M.D. on 01/13/2022 at 14:33 Approved by: Gil Neal M.D. on 01/13/2022 at 14:36
--- NOTE | 2022-01-13 14:27 | ED_ITS ---
HPI - Head Injury <CHRISTOS Araujo - Last Filed: 01/13/22 17:13> General Chief complaint: Trauma Stated complaint: Fell on sidewalk, Head lac Time Seen by Provider: 01/13/22 14:22 Source: patient Mode of arrival: Ambulatory History of Present Illness HPI Narrative: This is an otherwise healthy and active 86-year-old female who states that she was out on a walk this morning in [place] where she lives and she tripped on the sidewalk and fell forward onto her chest and her head. She denies seeing stars, loss of consciousness, nausea, or vomiting. She denies any weakness but now endorses a mild headache and pain where she fell. She denies taking any anticoagulants, she denies a history of falls, she denies any shortness of breath, weakness, chest pain, sensation changes. Patient states that she t ripped on the sidewalk because the ground was uneven and that is why she fell. She denies any neck pain, states that she has not had a tetanus vaccination in over 10 years. She denies any vision changes, lightheadedness, nausea, or other complaint. Related Data Allergies Allergy/AdvReac Type Severity Reaction Status Date / Time bee venom protein (honey bee) Allergy Severe Welts Verified 01/18/22 11:00 tetanus and diphtheria Allergy Severe Swelling Verified 01/18/22 11:00 toxoids at injection site, I feel sick peanut Allergy Mild Rash with Verified 01/18/22 11:00 overuse, able to use in moderate amounts amoxicillin [From Augmentin] Allergy Unknown Rash, Verified 01/18/22 11:00 nausea clavulanic acid Allergy Unknown Rash, Verified 01/18/22 11:00 [From Augmentin] nausea morphine AdvReac Unknown Swelling, Verified 01/18/22 11:00 made me sick Review of Systems <CHRISTOS Araujo - Last Filed: 01/13/22 17:13> Review of Systems Narrative: General: denies fever, chills, malaise, sweats, fatigue Head/Neck: Endorses having a mild headache since her fall, denies any neck pain or dizziness, has a head laceration on the left aspect of her forehead covered with a pressure dressing Eyes: denies visual changes, eye pain Cardio: denies chest pain, palpitations, edema Respiratory: denies dyspnea, cough, orthopnea GI: denies abdominal pain, nausea, vomiting, or diarrhea : denies dysuria, hematuria, urinary retention, frequency or incontinence MSK: denies joint pain, muscle weakness Skin: denies rash, itching, skin lesions or other Neuro: denies numbness, tingling Patient History <CHRISTOS Araujo - Last Filed: 01/13/22 17:13> Medical History Arthritis Easy bruisability Fragile skin Glaucoma Herpes labialis Hyperlipidemia Normal colonoscopy (~2011) Numbness and tingling Osteoarthritis Surgical History History of bunionectomy of left great toe History of root canal procedure (~06/2018) History of total hysterectomy with bilateral salpingo-oophorectomy (BSO) Hx of foot surgery Hx of laminectomy (~2012) Hx of repair of right rotator cuff Hx of tonsillectomy Status post cataract extraction of both eyes with insertion of intraocular lens Status post glaucoma surgery Social History household members: none Smoking Status: Former smoker alcohol intake: current Smoking Status: Former smoker alcohol intake frequency: 0-2 drinks per day Substance Use Type: does not use Exam <CHRISTOS Araujo - Last Filed: 01/13/22 17:13> Narrative Exam Narrative: Independently reviewed vitals signs and nursing notes. General: cooperative, comfortable, in no acute distress, well developed and well groomed Head: symmetrical facial expressions, left forehead with mild hematoma on the lateral aspect with a small less than 0.5 cm vertical laceration over, more medially on the left side of her forehead she has a vertical avulsion/laceration approximately 2 cm by 0.5 cm. This was irrigated with normal saline, cleanse, bleeding was controlled with pressure and no bleeding on my exam. Neck: supple, atraumatic, without lymphadenopathy. Eyes: pupils equal round and reactive, EOMI, conjunctiva normal Nose: nares patent, no rhinorrhea Mouth/Throat: uvula midline, moist mucus membranes Cardiovascular: regular rate and rhythm, no peripheral edema, warm extremities Respiratory: normal effort, able to speak in complete sentences, no audible wheezing, stridor, or rales. No retractions or tachypnea. GI: abdomen soft, nontender to palpation, nondistended, no masses, no exquisite tenderness with exam, without guarding or rebound. MSK: moves all extremities, ambulatory w/steady gait, neurovascularly intact, no weakness Skin: brisk capillary refill, no rash, no erythema Neuro: normal speech and cognition, A&O x3, normal tone Psych: mental status is grossly normal, congruent mood, normal affect, pleasant and cooperative Initial Vital Signs Initial Vital Signs: Vital Signs Temperature 97.9 F 01/13/22 13:54 Pulse Rate 61 01/13/22 13:54 Respiratory Rate 20 01/13/22 13:54 Blood Pressure 183/86 H 01/13/22 13:54 Pulse Oximetry 98 01/13/22 13:54 <Bee Sierra MD - Last Filed: 01/26/22 00:30> Initial Vital Signs Initial Vital Signs: Vital Signs Temperature 97.9 F 01/13/22 13:54 Pulse Rate 61 01/13/22 13:54 Respiratory Rate 20 01/13/22 13:54 Blood Pressure 183/86 H 01/13/22 13:54 Pulse Oximetry 98 01/13/22 13:54 Procedures <CHRISTOS Araujo - Last Filed: 01/13/22 17:13> Laceration Repair Laceration 1: Site: face Side (If applicable): left Size (cm): 3 Description: linear and irregular Depth: simple, single layer and involves muscle layer Local Anesthetic: lidocaine 1%, with epi and with bicarb Amount of anesthesia used (mL): 4 Pre-repair: wound explored, irrigated extensively and deep structures intact Skin layer closed with: nylon Skin layer suture size: 6-0 Number of sutures: 14 Technique: simple, interrupted Course <CHRISTOS Araujo - Last Filed: 01/13/22 17:13> Orders Ordered: Discontinued Medications Acetaminophen (Acetaminophen 325 Mg Tablet) 650 mg PO NOW ONE Stop: 01/13/22 14:29 Last Admin: 01/13/22 14:47 Dose: 650 mg Documented by: JAQUELIN Marsacin (Bacitracin Oint 0.9 Gm Pckt) 1 applic TOP NOW ONE Stop: 01/13/22 15:47 Last Admin: 01/13/22 16:01 Dose: 1 applic Documented by: SIS Diphenhydramine HCl (Diphenhydramine 25 Mg Tablet) 25 mg PO NOW ONE Stop: 01/13/22 14:29 Last Admin: 01/13/22 14:49 Dose: 25 mg Documented by: JAQUELIN Diphtheria/Tetanus/Acell Pertussis (Tet,Diph,Pertuss(Acell),Vac/Pf 0.5 Ml Syringe) 0.5 ml IM .ONCE ONE Stop: 01/13/22 14:29 Last Admin: 01/13/22 14:49 Dose: 0.5 ml Documented by: JAQUELIN Lidocaine/Epinephrine (Lidocaine 1% W/Epi) 1 ml SUBCUT NOW ONE Stop: 01/13/22 14:29 Last Admin: 01/13/22 18:35 Dose: 1 ml Documented by: VALERIY Lidocaine/Sodium Bicarbonate (Lido 1%/Sod Bicarb 8.4% (10ml) 10 Ml Syringe) 10 ml INJ NOW ONE Stop: 01/13/22 14:44 Last Admin: 01/13/22 18:36 Dose: Not Given Documented by: VALERIY Vital Signs Vital signs: Vital Signs - 8 hr 01/13/22 13:54 Temperature 97.9 F Pulse Rate 61 Respiratory Rate 20 Blood Pressure 183/86 H Pulse Oximetry 98 <Bee Sierra MD - Last Filed: 01/26/22 00:30> Orders Ordered: Discontinued Medications Acetaminophen (Acetaminophen 325 Mg Tablet) 650 mg PO NOW ONE Stop: 01/13/22 14:29 Last Admin: 01/13/22 14:47 Dose: 650 mg Documented by: JAQUELIN Bacitracin (Bacitracin Oint 0.9 Gm Pckt) 1 applic TOP NOW ONE Stop: 01/13/22 15:47 Last Admin: 01/13/22 16:01 Dose: 1 applic Documented by: SIS Diphenhydramine HCl (Diphenhydramine 25 Mg Tablet) 25 mg PO NOW ONE Stop: 01/13/22 14:29 Last Admin: 01/13/22 14:49 Dose: 25 mg Documented by: JAQUELIN Diphtheria/Tetanus/Acell Pertussis (Tet,Diph,Pertuss(Acell),Vac/Pf 0.5 Ml Syringe) 0.5 ml IM .ONCE ONE Stop: 01/13/22 14:29 Last Admin: 01/13/22 14:49 Dose: 0.5 ml Documented by: JAQUELIN Lidocaine/Epinephrine (Lidocaine 1% W/Epi) 1 ml SUBCUT NOW ONE Stop: 01/13/22 14:29 Last Admin: 01/13/22 18:35 Dose: 1 ml Documented by: VALERIY Lidocaine/Sodium Bicarbonate (Lido 1%/Sod Bicarb 8.4% (10ml) 10 Ml Syringe) 10 ml INJ NOW ONE Stop: 01/13/22 14:44 Last Admin: 01/13/22 18:36 Dose: Not Given Documented by: VALERIY Vital Signs Vital signs: Vital Signs - 8 hr 01/13/22 13:54 Temperature 97.9 F Pulse Rate 61 Respiratory Rate 20 Blood Pressure 183/86 H Pulse Oximetry 98 MDM - Head Injury <CHRISTOS Araujo - Last Filed: 01/13/22 17:13> Imaging Data CT scan - head: Radiologist's Impression: PROCEDURE:? CT HEAD/BRAIN WO CON ? INDICATIONS:? trauma ? TECHNIQUE:? Noncontrast 4.5 mm thick angled axial sections acquired from the foramen magnum to the vertex, with coronal and sagittal reformats.? For radiation dose reduction, the following was used:? automated exposure control, adjustment of mA and/or kV according to patient size.? ? COMPARISON:? None. ? FINDINGS:? Image quality:? Excellent.? ? CSF spaces:? Basal cisterns are patent.? No extra-axial fluid collections.? Ventricles are normal in size and shape.? ? Brain:? No midline shift.? No intracranial masses or hemorrhage.? No area of hypodensity in a large vascular distribution to suggest acute infarction. Periventricular hypodensity consistent with chronic microvascular ischemic change. Age-related parenchymal loss. ? Skull and face:? Small hematoma at the left forehead.? Calvarium and visualized facial bones are intact, without suspicious lesions.? ? Sinuses:? Visualized sinuses and mastoids are clear.? ? IMPRESSION:? No acute intracranial abnormality. ? Small left forehead hematoma. ? ? Dictated by: Gil Neal M.D. on 01/13/2022 at 14:33 ? ? Approved by: Gil Neal M.D. on 01/13/2022 at 14:36 ? CT - cervical spine: Radiologist's Impression: PROCEDURE:? CT CERVICAL SPINE WO CON ? INDICATIONS:? trauma ? TECHNIQUE:? Noncontrast 3 mm thick sections acquired from the skull base to the T4 level.? Sagittal and coronal reformats were then constructed.? For radiation dose reduction, the following was used:? automated exposure control, adjustment of mA and/or kV according to patient size.? ? COMPARISON:? None. ? FINDINGS:? Image quality:? Excellent.? ? Bones:? No fractures or dislocations.? Moderate to severe degenerative change in the cervical spine most pronounced at C5-C6 and C6-C7.? Visualized superior ribs are intact.? ? ? Soft tissues:? Moderate calcification at the carotid bulbs.? Prevertebral soft tissues are normal in thickness.? No paravertebral hematomas.? No apical pneumoth oraces.? ? ? IMPRESSION:? No acute osseous abnormality. ? ? ? Dictated by: Gil Neal M.D. on 01/13/2022 at 14:36 ? ? Approved by: Gil Neal M.D. on 01/13/2022 at 14:39 ? Chest x-ray: Radiologist's Impression: PROCEDURE:? XR CHEST 1V ? INDICATIONS:? fall on to chest ? TECHNIQUE:? One view of the chest was acquired.? ? COMPARISON:? [facility], , CHEST 2 VIEW, 03/07/2008, 12:00. ? FINDINGS:? ? Surgical changes and devices:? None.? ? Lungs and pleura:? Lungs are clear.? No pleural effusions or pneumothorax.? ? Mediastinum:? Mediastinal contours appear normal.? Heart size is enlarged. ? Bones and chest wall:? No suspicious bony lesions.? Overlying soft tissues appear unremarkable.? ? IMPRESSION:? No acute pulmonary process. ? ? Dictated by: Dulce Barnhart M.D. on 01/13/2022 at 15:02 ? ? Approved by: Dulce Barnhart M.D. on 01/13/2022 at 15:02 ? MDM Narrative Medical decision making narrative: This is a pleasant 86-year-old female presents to the emergency department after a mechanical ground level fall this morning after tripping on the sidewalk. Patient states she fell forward and caught herself with her chest and her forehead. She has a hematoma and laceration to the left forehead approximately 3 cm in total from the 2 lacerations. Wound was cleaned with normal saline and Hibiclens, left lateral wound involved a vein and was oozy for most of the repair. Pressure and Surgicel was applied, the wound eventually stopped oozing. Wound edges were well approximated, a total of 14 sutures were used, patient understands to have these removed in 5 days. Patient had a large hematoma and swelling was present with fragile overlying skin, sutures were placed as best as possible using intact skin. Recommend pressure, ice, Tylenol as needed for pain, and prophylaxis with doxycycline due to the depth of the wound and involvement with the frontalis muscle. No laceration through the muscle only blunt injury on the lateral aspect. CT head was negative for acute intracranial abnormality, chest x-ray was negative for acute pulmonary process or pulmonary contusions, cervical spine CT does not show any osseous abnormality. Patient had full range of motion, was ambulatory without weakness, did not have any loss of consciousness, nausea, vomiting or mental status changes. She is not on any anticoagulants. Recommend she follow-up with Dr. Maldonado in 5 or less days and have her sutures removed in 5 days. Patient understands her discharge result, her son is present and helping take note and is available to drive patient home. Patient is appropriate and amenable to discharge home. Vital signs are stable on repeat examination is unremarkable. Patient has been informed of results. Patient has been given strict return to ER precautions for any new or worsening symptoms. Patient understands to follow up closely with outpatient providers as instructed. Patient understands plan and agrees to discharge home. All questions and concerns answered at this time. Discharge Plan Departure Patient Disposition: Home Clinical Impression: Laceration of head Fall Qualifiers: Encounter type: subsequent encounter Qualified Code(s): W19.XXXD - Unspecified fall, subsequent encounter Instructions: DI for Laceration Repair of the Scalp, Closed Head Injury Activity Restrictions/Additional Instructions: *You have been diagnosed with a fall with a head injury, skin laceration, and contusion/hematoma which received 14 non dissolvable sutures. Please call Dr. Maldonado's office and request a follow-up from the emergency department visit in 5 days from today which is on Tuesday. Please have your sutures removed in 5 days. Please call today before they close and schedule this appointment if you are able. If you are unable to see him on that day, please schedule suture removal and schedule another appointment with Dr. Maldonado at the soonest available. Please take doxycycline twice a day for infection prophylaxis for the next few days. Your tetanus was updated today, this will cover you for the next 10 years. Your Tylenol dose was at 1430 hours, the next time he can have a dose at 08:30pm. You may have a headache for the next couple of days, if you notice you have a worsening headache, difficulty concentrating, these are signs of a con cussion, and it would be best if you can rest if you feel the symptoms. You can use heat on your shoulders, use Tylenol for pain, use ice on your contusion and over your sutures and keep her head elevated if you can. If you have any vision changes, worsening headache, altered mentation, or started vomiting, please return to the emergency department for another evaluation. Please keep your sutures covered with bacitracin or Vaseline, and covered with a Band-Aid. Thank you for trusting us with your care, it was a pleasure to meet you. *What to do: *Please continue to take your regular medications as directed. [ x] New medication prescriptions sent to your pharmacy: [ [facility]] [ ] New medication written as a paper prescription [ ] No new medications given *Please follow up with your primary care provider in 2-3 days, call for an appointment. Let them know you were seen in the Emergency Department and that we asked that you be seen for follow-up. We will electronically transmit a record of today's note if your PCP is in our system *If you do not have a primary care provider please contact [phone] to establish care with one of the [facility] primary care providers. *Return to Emergency Department if you should have any new, worsening or concerning symptoms, such as [fever greater than 101F, chills, worsening pain, persistent vomiting or other bothersome symptoms] Referrals: Elias Maldonado MD [Primary Care Provider] - <Bee Sierra MD - Last Filed: 01/26/22 00:30> [facility]: I was immediately available in the department for consultation throughout this patient's visit. I agree with documentation as above. Bee Sierra MD
--- NOTE | 2022-01-13 14:45 | DI.RAD.S_ITS ---
PROCEDURE: XR CHEST 1V INDICATIONS: fall on to chest TECHNIQUE: One view of the chest was acquired. COMPARISON: [facility], , CHEST 2 VIEW, 03/07/2008, 12:00. FINDINGS: Surgical changes and devices: None. Lungs and pleura: Lungs are clear. No pleural effusions or pneumothorax. Mediastinum: Mediastinal contours appear normal. Heart size is enlarged. Bones and chest wall: No suspicious bony lesions. Overlying soft tissues appear unremarkable. IMPRESSION: No acute pulmonary process. Dictated by: Dulce Barnhart M.D. on 01/13/2022 at 15:02 Approved by: Dulce Barnhart M.D. on 01/13/2022 at 15:02
[2022-01-13] MEDS: ACETAMINOPHEN 325 MG TABLET 650 MG PO (14:47)
[2022-01-13] MEDS: TET,DIPH,PERTUSS(ACELL),VAC/PF 0.5 ML SYRINGE IM (14:49)
[2022-01-13] MEDS: diphenhydrAMINE 25 MG TABLET PO (14:49)
[2022-01-13] MEDS: BACITRACIN OINT 0.9 GM PCKT 1 APPLIC TOP (16:01)
[2022-01-13] MEDS: LIDOCAINE 1% W/EPI 1 ML SUBCUT (18:35)
== END 2022-01-13 16:23 | disposition home or self-care (01) ==
PROVIDERS: Emergency Provider Nurse Practitioner Critical Care Medicine; PCP Internal Medicine
DX: S01.81XA Laceration without foreign body of other part of head, initial encounter (principal); R51.9 Headache, unspecified; W01.10XA Fall on same level from slipping, tripping and stumbling with subsequent striking against unspecified object, initial encounter; Z23 Encounter for immunization
CPT/HCPCS: 12052; 70450; 71045; 72125; 90471; 99284; 90715

== ENCOUNTER → 2024-02-22 16:16 | Outpatient (CLI) | payer MEDICARE, BC, SELFPAY ==
[2018-10-05 12:13] VITALS: BMI 19.3
[2024-02-22 17:26] LABS: Hematocrit 39.8 % (36-46); Hemoglobin 13.4 g/dL (12.0-16.0); Mean Corpuscular HGB Conc 33.7 % (30-36); Mean Corpuscular Hemoglobin 31.7 PG (26-34); Platelet Count 231 X10^3/uL (150-400); Red Blood Cell Count 4.23 X10^6/uL (4.0-5.2); Red Cell Distribution Width 14.6 % (11.6-14.8); White Blood Cell Count 5.3 X10^3/uL (4.5-11.0)
[2024-02-22 17:58] LABS: Alanine Aminotransferase 17 IU/L (<35); Albumin 4.6 g/dL (3.5-5.0); Albumin Globulin Ratio 1.8 (1.0-2.8); Alkaline Phosphatase 67 U/L (38-126); Aspartate Aminotransferase 35 IU/L (14-36); BUN Creatinine Ratio 33.3 (6-22); Bilirubin Total 0.5 mg/dL (0.2-1.3); Blood Urea Nitrogen 21 mg/dL (7-17); Calcium 9.2 mg/dL (8.4-10.2); Carbon Dioxide 28 mmol/L (22-32); Chloride 100 mmol/L (98-107); Cholesterol 303 mg/dL (140-199); Estimated Glomerular Filt Rate > 60 mL/min (>60); Globulin 2.5 g/dL (1.7-4.1); Glucose 92 mg/dL (80-110); HEMOLYSIS < 15 (0-50); Potassium 4.6 mmol/L (3.4-5.1); Sodium 132 mmol/L (137-145); Total Protein 7.1 g/dL (6.3-8.2); Triglycerides 63 mg/dL (35-150)
[2024-02-22 18:12] LABS: HDL Cholesterol 131 mg/dL (40-60); LDL Cholesterol Calculated 159 mg/dL (<100)
[2024-02-22 18:29] LABS: TSH w/ Reflex to FT4 3.36 uIU/mL (0.47-4.68)
[2024-02-22 18:46] LABS: Vitamin B12 653 pg/mL (239-931)
== END ==
PROVIDERS: PCP Internal Medicine; Referring Provider Internal Medicine; Visit Provider Internal Medicine
DX: K59.01 Slow transit constipation (principal); E78.2 Mixed hyperlipidemia; E53.8 Deficiency of other specified B group vitamins
CPT/HCPCS: 36415; 80053; 80061; 82607; 84443; 85027

== ENCOUNTER → 2024-05-31 13:43 | Outpatient (CLI) | payer MEDICARE, BC, SELFPAY ==
[2024-05-24 16:41] VITALS: BMI 19.1
== END ==
LOC: CAR 13:43
PROVIDERS: PCP Internal Medicine; Referring Provider Internal Medicine; Visit Provider Internal Medicine
DX: R55 Syncope and collapse (principal)
CPT/HCPCS: 93246

== ENCOUNTER → 2024-07-26 10:22 | Outpatient (CLI) | payer MEDICARE, BC, SELFPAY ==
[2024-05-24 16:41] VITALS: BMI 19.1
--- NOTE | 2024-07-26 10:24 | DI.RAD.S_ITS ---
PROCEDURE: XR SHOULDER RT MIN 2V INDICATIONS: right shoulder pain, fall TECHNIQUE: Three views of the shoulder were acquired. COMPARISON: [facility], CR, XR SHOULDER LT MIN 2V, 12/18/2018, 13:55. FINDINGS: Bones: There are no fractures or other osseous abnormalities. Acromioclavicular and glenohumeral joints: Mild degeneration. Soft tissues: No soft tissue swelling, calcification or mass. IMPRESSION: Mild acromioclavicular and glenohumeral degeneration. Dictated by: Jin Mederos M.D. on 07/27/2024 at 9:18 Approved by: Jin Mederos M.D. on 07/27/2024 at 9:19
[2024-07-26 11:42] LABS: Hematocrit 40.8 % (36-46); Hemoglobin 13.6 g/dL (12.0-16.0); Mean Corpuscular HGB Conc 33.3 % (30-36); Mean Corpuscular Hemoglobin 31.5 PG (26-34); Mean Corpuscular Volume 94.6 fL (80-100); Platelet Count 238 X10^3/uL (150-400); Red Blood Cell Count 4.31 X10^6/uL (4.0-5.2); Red Cell Distribution Width 13.7 % (11.6-14.8); White Blood Cell Count 3.5 X10^3/uL (4.5-11.0)
[2024-07-26 12:01] LABS: Alanine Aminotransferase 14 IU/L (<35); Albumin 4.2 g/dL (3.5-5.0); Albumin Globulin Ratio 1.8 (1.0-2.8); Alkaline Phosphatase 68 U/L (38-126); Aspartate Aminotransferase 30 IU/L (14-36); BUN Creatinine Ratio 21.4 (6-22); Bilirubin Total 0.6 mg/dL (0.2-1.3); Blood Urea Nitrogen 12 mg/dL (7-17); Calcium 9.3 mg/dL (8.4-10.2); Carbon Dioxide 28 mmol/L (22-32); Chloride 99 mmol/L (98-107); Estimated Glomerular Filt Rate > 60 mL/min (>60); Globulin 2.4 g/dL (1.7-4.1); Glucose 84 mg/dL (80-110); HEMOLYSIS < 15 (0-50); Potassium 4.5 mmol/L (3.4-5.1); Sodium 132 mmol/L (137-145); Total Protein 6.6 g/dL (6.3-8.2)
== END ==
PROVIDERS: PCP Internal Medicine; Referring Provider Internal Medicine; Visit Provider Internal Medicine
DX: M19.011 Primary osteoarthritis, right shoulder (principal); M75.81 Other shoulder lesions, right shoulder; K59.01 Slow transit constipation; E78.2 Mixed hyperlipidemia
CPT/HCPCS: 36415; 73030; 80053; 85027